=== PATIENT | female | born 1985 | race Caucasian/White ===

== ENCOUNTER → 2016-10-03 | Outpatient (REF) | payer OTHER ==
[~2016-10-03] MED LIST: CLIN300C PO; PHEN-223 PO; [UNRECOGNIZED DRUG - OTHER]
[2016-10-03 17:12] LABS: MEAN CORPUSCULAR HEMOGLOBIN 22.8 pg (27.0-33.0); MEAN CORPUSCULAR HGB CONC 29.9 g/dl (32.0-36.5); MEAN CORPUSCULAR VOLUME 76.3 fl (80.0-96.0); RED CELL DISTRIBUTION WIDTH 15.2 % (11.5-14.5); WHITE BLOOD COUNT 4.9 K/mm3 (4.0-10.0)
[2016-10-06 00:06] LABS: Lyme Disease IgG/IgM Antibodie <0.91 ISR (0.00-0.90); Lyme Disease IgM Ab Quantitati <0.80 index (0.00-0.79)
== END ==
LOC: M SFHCLERA 11:13
PROVIDERS: ATTEND Physician Assistant
DX: M25.50 Pain in unspecified joint (principal)

== ENCOUNTER → 2016-11-01 | Outpatient (CLI) | payer OTHER ==
--- NOTE | 2016-11-01 16:29 | REP ---
RIGHT HAND: REASON: Finger pain. COMPARISON: None. FINDINGS: The joint spaces are symmetric and relatively well maintained. There is no evidence of acute fracture or destructive osseous lesion. There has been no history of trauma. IMPRESSION: Negative hand. Signed by Frandy Ponce DO 11/01/2016 05:02 P
== END ==
LOC: M LRY 14:12
PROVIDERS: ATTEND Physician Assistant
DX: M79.644 Pain in right finger(s) (principal)
CPT/HCPCS: 73130; G0463

== ENCOUNTER → 2016-12-16 | Outpatient (CLI) | payer OTHER | LOC: M LRY 09:37 | PROVIDERS: ATTEND Nurse Practitioner Pediatrics | DX: G56.01 Carpal tunnel syndrome, right upper limb (principal); G56.02 Carpal tunnel syndrome, left upper limb; K30 Functional dyspepsia ==

== ENCOUNTER → 2017-12-17 | Outpatient (REF) | payer OTHER, MEDICAID | LOC: M SFHCLERA 12-18 09:11 | DX: D22.5 Melanocytic nevi of trunk (principal) ==

== ENCOUNTER → 2018-02-12 | Outpatient (REF) | payer OTHER ==
[2018-02-12 13:04] LABS: ESTIMATED AVERAGE GLUCOSE 91 MG/DL (60-110); HEMOGLOBIN A1c 4.8 %
== END ==
LOC: M SFHCLERA 09:36
DX: Z01.812 Encounter for preprocedural laboratory examination (principal)
CPT/HCPCS: 83036

== ENCOUNTER 2018-04-14 06:04 | Day surgery (SDC) | payer OTHER ==
[2018-04-14] MEDS: LR 1,000 ML IV ×5 (06:00→23:00)
[2018-04-14 06:25] LABS: HEMOGLOBIN 13.9 g/dl (12.0-15.5); MEAN CORPUSCULAR HEMOGLOBIN 29.6 pg (27.0-33.0); MEAN CORPUSCULAR HGB CONC 32.3 g/dl (32.0-36.5); MEAN CORPUSCULAR VOLUME 91.7 fl (80.0-96.0); PLATELET COUNT, AUTOMATED 300 10^3/uL (150-450); RED BLOOD COUNT 4.69 10^6/uL (4.00-5.40); RED CELL DISTRIBUTION WIDTH 12.3 % (11.5-14.5); WHITE BLOOD COUNT 6.1 10^3/uL (4.0-10.0)
[2018-04-14] MEDS ORDERED: PROPOFOL 200 MG/20 ML VIAL As Ordered ×2 (07:15→07:40)
[2018-04-14] MEDS ORDERED: ROCURONIUM BROMIDE 50 MG/5 ML VIAL As Ordered ×2 (07:15→08:18)
[2018-04-14] MEDS ORDERED: dexameTHASONE 4 MG/ML 1ML VIAL (J1100) As Ordered (07:15)
[2018-04-14] MEDS ORDERED: LIDOCAINE 2% INJ 100 MG/5 ML SDV (FOR ANES.) As Ordered (07:15)
[2018-04-14] MEDS ORDERED: MIDAZOLAM INJ 2 MG/2 ML VIAL (J2250) As Ordered (07:16)
[2018-04-14] MEDS ORDERED: fentaNYL 100 MCG/2 ML INJECTION (J3010) As Ordered (07:18)
[2018-04-14 07:37] LABS: CONTROL LINE UCG INT CTR LINE PRESENT; URINE PREG TEST NEGATIVE (NEGATIVE)
[2018-04-14] MEDS ORDERED: KETAMINE HCL 200 MG/20 ML VIAL As Ordered (08:13)
[2018-04-14] MEDS ORDERED: HYDROmorphone HCL 2 MG/ML 1ML VIAL (J1170) As Ordered (08:29)
[2018-04-14] MEDS ORDERED: NEOSTIGMINE 10 MG/10 ML VIAL (J2710) As Ordered (10:20)
[2018-04-14] MEDS ORDERED: GLYCOPYRROLATE INJ 0.2 MG/ML 2 ML VIAL As Ordered ×2 (10:21→10:32)
[2018-04-14] MEDS ORDERED: KETOROLAC 60 MG/2 ML VIAL (J1885) As Ordered (10:21)
[2018-04-14] MEDS ORDERED: ONDANSETRON 4MG/2ML VIAL (J2405) As Ordered (10:21)
[2018-04-14] MEDS: METHYLENE BLUE 0.5% (5MG/ML) 10 ML AMP (PROVAYBLUE)(Q9968 PER 1MG) As Ordered (10:29)
[2018-04-14] MEDS ORDERED: MORPHINE 1MG/ML IN 0.9% NACL 100ML IV BAG As Ordered (11:23)
[2018-04-14] MEDS: MORPHINE 1MG/ML IN 0.9% NACL 100ML IV BAG IV (11:30)
[2018-04-14] MEDS: EPIDURAL/PCA KEYS XX (11:30)
[2018-04-14] MEDS: PERCOCET 5MG/325MG TAB PO ×2 (11:35→12:05)
[2018-04-14] MEDS: HYDROMORPHONE HCL 0.5 MG/ 0.5 ML SYRINGE (J1170 PER 1) IV ×5 (11:35→12:15)
[2018-04-14] MEDS: ONDANSETRON 4MG/2ML VIAL (J2405) IV (11:35)
[2018-04-14] MEDS: fentaNYL 100 MCG/2 ML INJECTION (J3010) IV ×4 (11:40→11:55)
[2018-04-14] MEDS ORDERED: NALBUPHINE HCL 10 MG/ML AMP (J2300) IV (12:15)
[2018-04-14] MEDS ORDERED: NALOXONE INJ 0.4 MG/1 ML VIAL (J2310) IV (12:15)
[2018-04-14] MEDS ORDERED: diphenhydrAMINE INJ 50MG/ML VIAL (J1200) IV (12:15)
[2018-04-14] MEDS: ALPRAZolam 0.5 MG TAB PO (16:13)
[2018-04-14] MEDS: PROMETHAZINE INJ 25 MG/ML VIAL (J2550) IV (16:49)
[2018-04-14 17:15] LABS: HEMATOCRIT 33.7 % (36.0-47.0)
[2018-04-14 17:16] LABS: HEMOGLOBIN 11.2 g/dl (12.0-15.5)
[2018-04-14] MEDS: BACLOFEN 10 MG TAB PO (17:32)
[2018-04-14] MEDS: LACTATED RINGER'S 1000 ML IV (18:30)
[2018-04-14] MEDS: IBUPROFEN 600 MG TAB PO (18:50)
[2018-04-14] MEDS: HYDROXYCHLOROQUINE 200 MG TAB PO (21:00)
[2018-04-14] MEDS: PENTOSAN POLYSULFATE SODIUM 100 MG CAP (ELMIRON) PO (21:00)
[2018-04-14] MEDS ORDERED: AMITRIPTYLINE 50 MG TAB PO (21:00)
[2018-04-14] MEDS: DICYCLOMINE 10 MG CAP PO (21:53)
[2018-04-14] MEDS: AMITRIPTYLINE 50 MG TAB PO (21:53)
[2018-04-15 06:47] LABS: HEMATOCRIT 22.1 % (36.0-47.0); MEAN CORPUSCULAR HGB CONC 33.5 g/dl (32.0-36.5); MEAN CORPUSCULAR VOLUME 89.5 fl (80.0-96.0); PLATELET COUNT, AUTOMATED 263 10^3/uL (150-450); RED BLOOD COUNT 2.47 10^6/uL (4.00-5.40); RED CELL DISTRIBUTION WIDTH 12.4 % (11.5-14.5); WHITE BLOOD COUNT 9.3 10^3/uL (4.0-10.0)
[2018-04-15 06:55] LABS: HEMOGLOBIN 7.4 g/dl (12.0-15.5)
[2018-04-15] MEDS: LR 1,000 ML IV ×2 (07:00→15:00)
[2018-04-15] MEDS: NORCO, ANEXSIA 5/325MG TABLET (HYDROcodone/ACETAMINOPHEN) PO ×3 (07:17→15:22)
[2018-04-15] MEDS: IBUPROFEN 600 MG TAB PO ×2 (07:17→13:22)
[2018-04-15 09:26] LABS: IMMEDIATE SPIN CROSSMATCH 1 2
[2018-04-15] MEDS: DICYCLOMINE 10 MG CAP PO (09:37)
[2018-04-15] MEDS: HYDROXYCHLOROQUINE 200 MG TAB PO (09:38)
[2018-04-15] MEDS: BACLOFEN 10 MG TAB PO (09:38)
[2018-04-15] MEDS: TROSPIUM 20 MG TAB PO (09:39)
[2018-04-15] MEDS: PENTOSAN POLYSULFATE SODIUM 100 MG CAP (ELMIRON) PO ×2 (09:39→16:02)
[2018-04-15] MEDS: MORPHINE 4 MG/ML 1ML VIAL/SYRINGE (J2270) IV (10:41)
[2018-04-15] MEDS: medroxyPROGESTERone 5MG TABLET PO (10:55)
[2018-04-15] MEDS: ALPRAZolam 0.5 MG TAB PO (11:19)
[2018-04-15 14:11] LABS: HEMATOCRIT 28.2 % (36.0-47.0)
[2018-04-15 14:31] LABS: HEMOGLOBIN 9.6 g/dl (12.0-15.5)
== END 2018-04-15 18:00 | disposition home or self-care (01) ==
LOC: M SDC 06:04 → M PED 13:10
DX: N94.10 Unspecified dyspareunia (principal); N92.0 Excessive and frequent menstruation with regular cycle; R10.9 Unspecified abdominal pain; N30.11 Interstitial cystitis (chronic) with hematuria; K21.9 Gastro-esophageal reflux disease without esophagitis; Z79.899 Other long term (current) drug therapy; N73.6 Female pelvic peritoneal adhesions (postinfective); N80.0 Endometriosis of uterus; F32.9 Major depressive disorder, single episode, unspecified; F41.9 Anxiety disorder, unspecified; M79.7 Fibromyalgia; F17.210 Nicotine dependence, cigarettes, uncomplicated
CPT/HCPCS: 58571

== ENCOUNTER → 2018-08-11 | Outpatient (CLI) | payer OTHER ==
[~2018-08-11] MED LIST changes: +ALPR0.5T3 PO; +AMIT50TA PO; +BACL10TA2 PO; +DICY20TA PO; +HYDR200T3 PO; +MEDR10TA PO; +PENT10CA PO; +SULF500T2 PO; +TROS20TA3 PO; +VITMTA PO
== END ==
LOC: M SLEEP HO 10:09
PROVIDERS: ATTEND Physician Assistant
DX: R40.0 Somnolence (principal); R06.83 Snoring